=== PATIENT | male | born 1940 | race Caucasian/White ===

== ENCOUNTER 2017-02-24 03:32 | Inpatient (IN) ==
[2017-02-19 14:53] LABS: MANUAL DIFF NEEDED? NO; URINE MICRO REVIEW NEEDED? NO; URINE SOURCE CLEAN CATCH
[2017-02-19 14:57] LABS: BASO% 0.7 % (0.0-0.8); BILIRUBIN URINE NEGATIVE (NEGATIVE); BLOOD URINE NEGATIVE (NEGATIVE); COLOR YELLOW; EOS# 0.16 X1000 (0.0-0.7); EOS% 2.3 % (0.0-10.0); GLUCOSE URINE NEGATIVE (NEGATIVE); HEMATOCRIT 43.8 % (42.0-52.0); HEMOGLOBIN 15.3 g/dL (14.0-18.0); IMM GRAN# 0.03 X1000 (0.0-0.04); IMM GRAN% 0.4 % (0.0-0.5); LEUKOCYTES URINE NEGATIVE (NEGATIVE); LYMPH# 1.88 X1000 (1.2-3.4); LYMPH% 27.5 % (20.5-51.1); MCH 32.8 PG (27-31); MCHC 34.9 g/dL (33-37); MCV 93.8 FL (81-99); MONO# 0.62 X1000 (0.11-0.59); MONO% 9.1 % (1.7-9.3); MPV 9.9 FL (7.4-10.4); NITRITE URINE NEGATIVE (NEGATIVE); PH URINE 5.5; PLT 287 X1000 (130-400); PROTEIN URINE NEGATIVE (NEGATIVE); RBC 4.67 XMIL (4.7-6.1); SP GRAVITY URINE 1.018; TURBIDITY URINE CLEAR (CLEAR); UROBILINOGEN URINE NORMAL (NORMAL)
[2017-02-19 14:58] LABS: UR EPITHELIAL CELLS <10 /HPF (<10); URINE BACTERIA NEGATIVE /HPF; URINE RBC <10 /HPF (<10); URINE WBC <10 /HPF (<10)
[2017-02-19 15:03] LABS: INR 1.02; PROTIME 10.7 Seconds (9.2-11.7)
[2017-02-19 15:21] LABS: CALCIUM 9.5 mg/dL (8.8-10.2); POTASSIUM 4.9 mmol/L (3.5-5.1)
--- NOTE | 2017-02-19 16:24 | EKG Report ---
Test Performed on : 02/19/2017 2:39:04 PM Test Reason : PAT Blood Pressure : / mmHG Vent. Rate : 071 BPM Atrial Rate : 071 BPM P-R Int : 166 ms QRS Dur : 104 ms QT Int : 380 ms P-R-T Axes : 044 008 044 degrees QTc Int : 412 ms Sinus rhythm. with occasional premature ventricular complexes. Possible Anterior infarct , age undetermined Abnormal ECG When compared with ECG of 13-JUN-2009 11:29, premature ventricular complexes. are now present Borderline criteria for Anterior infarct are now present Nonspecific T wave abnormality no longer evident in Lateral leads Confirmed by Nadja SIMENTAL, Derrick Mistry ([id number]) on 02/19/2017 8:00:59 PM
[2017-02-24] MEDS ORDERED: NORCO-10 PO PRN (07:01)
[2017-02-24] MEDS ORDERED: MORPHINE IV PRN (07:01)
[2017-02-24] MEDS ORDERED: PEPCID ONE (08:17)
[2017-02-24] MEDS ORDERED: REGLAN ONE (08:17)
[2017-02-24] MEDS ORDERED: KEFZOL 2 GM/D5W 2 GM/50 ML IVPB ONE (08:18)
[2017-02-24] MEDS ORDERED: LYRICA ONE (08:18)
[2017-02-24] MEDS ORDERED: LR 1,000 ML ONE ×2 (08:18→14:21)
[2017-02-24] MEDS: CELEBREX PO SCH (08:58)
[2017-02-24] MEDS: COLACE PO SCH ×2 (08:58→21:34)
[2017-02-24] MEDS ORDERED: PROSCAR PO SCH ×2 (09:00→21:00)
[2017-02-24] MEDS ORDERED: PRINIVIL PO SCH ×2 (09:00→21:00)
[2017-02-24] MEDS ORDERED: LOPID PO SCH ×2 (09:00→21:00)
[2017-02-24] MEDS ORDERED: FLOMAX PO SCH ×2 (09:00→21:00)
[2017-02-24] MEDS ORDERED: ZETIA PO SCH ×2 (09:00→21:00)
[2017-02-24] MEDS ORDERED: TORADOL ONE (09:56)
[2017-02-24] MEDS ORDERED: VANCOMYCIN ONE (09:56)
[2017-02-24] MEDS ORDERED: MARCAINE 0.25% PF/EPI 1:200,000 ONE (09:56)
[2017-02-24] MEDS ORDERED: DURAMORPH ONE (09:56)
[2017-02-24] MEDS ORDERED: SODIUM CHLORIDE 0.9% ONE (09:56)
[2017-02-24] MEDS ORDERED: CYKLOKAPRON 1,000 MG/NS 1,000 MG/100 ML IVPB ONE ×2 (09:57)
[2017-02-24] MEDS ORDERED: CLAVE SECONDARY SET 11953 ONE (09:57)
[2017-02-24] MEDS ORDERED: NEOSPORIN G.U. IRRIGANT ONE (09:57)
[2017-02-24] MEDS ORDERED: EXPAREL 1.3% ONE (09:57)
[2017-02-24 11:06] LABS: URINE SOURCE CATH
[2017-02-24 11:23] LABS: BILIRUBIN URINE NEGATIVE (NEGATIVE); BLOOD URINE TRACE-INTACT (NEGATIVE); CLARITY CLEAR (CLEAR); COLOR YELLOW; GLUCOSE URINE NEGATIVE (NEGATIVE); LEUKOCYTES URINE NEGATIVE (NEGATIVE); NITRITE URINE NEGATIVE (NEGATIVE); PROTEIN URINE NEGATIVE (NEGATIVE); UROBILINOGEN URINE 0.2 EU/dL (0.2-1.0)
[2017-02-24 11:34] LABS: URINE EPITHELIAL CELLS <10 /HPF (<10); URINE RBC <10 /HPF (<10); URINE WBC <10 /HPF (<10)
[2017-02-24 11:56] LABS: URINE CAST NONE SEEN /LPF; URINE CRYSTAL NONE SEEN /HPF
--- NOTE | 2017-02-24 12:06 | OPERATIVE NOTE ---
PROCEDURE DATE: 02/24/2017 DATE OF SURGERY: 02/24/2017. PREOPERATIVE DIAGNOSIS: Degenerative joint disease, left knee. POSTOPERATIVE DIAGNOSIS: Degenerative joint disease, left knee. PROCEDURE: Left total knee replacement. SURGEON: Teddy Cruz MD. DRYWALL CONTRACTOR: Neftali Bond. ANESTHESIA: Spinal. COMPLICATION: None. PROCEDURE IN DETAIL: A 76-year-old presents for total knee replacement of the left knee. Risks, benefits and no guarantees were discussed, and he is willing to proceed. He was taken the operating room and satisfactory anesthesia obtained. The left knee was prepped and draped in usual sterile fashion. A time-out was taken to confirm operative site, procedure, and patient. An Esmarch was used to exsanguinate extremity and tourniquet inflated to 350 mmHg. A midline incision was made over the front of the knee followed by a quad tendon sparing arthrotomy. The patella was everted and resurfaced with freehand technique and sized to a 38 medialized dome patella. The drill paddle was used to prepare for this and the patella subluxed laterally. The knee was flexed. An intramedullary hole made in the distal femur. Distal femoral cutting block was secured, taken additional 2 mm off the distal femoral cut due to a stiff 15 degree flexion contracture. The distal femur was cut and the distal femur sized to a size 8 DePuy Attune femoral component. The 4-in-1 block was secured, and the anterior, posterior, and chamfer cuts sequentially made. The notch was created for posterior stabilized design using provided notch guide. Any osteophytes were debrided about the medial or lateral aspects of the femur and the posterior condyles. The knee was flexed and PCL retractor placed behind the tibia to protect the neurovascular bundle. The tibial cutting block was secured with extramedullary alignment and the tibial resection made. The tibia was sized to a size 9 tibial tray. Medial osteophytes were released off the tibia for soft tissue balancing. The trial reduction was performed with a size 9 tibia and a standard 5 mm rotating platform poly with good range of motion and stability. The trial implants were removed and the bony surfaces thoroughly irrigated with pulsatile lavage. Cement with a gram of vancomycin was utilized to cement a DePuy Attune size 9 rotating platform tibial tray, a size 8 left posterior stabilized femoral component, and a 38 medialized dome patella. While the cement cured, the joint capsule was injected with Exparel for pain management and a Hemovac drain placed. Any excess cement was removed with an osteotome as necessary. A size 8, 5 mm rotating platform posterior stabilized poly was secured in the tibial tray and the knee reduced. Final range of motion was 0-120 degrees with midline patellar tracking. The arthrotomy was then copiously irrigated and closed over the drain with #1 Vicryl in the arthrotomy, 2-0 Vicryl in the subcutaneous, and skin kaitlin on the skin edges. Sterile dressings completed the closure, and the tourniquet was released with good return of capillary blood flow. No intraoperative complications were noted. Instrument count and sponge count were correct at the time of closure. cc: Timoteo Cruz MD
[2017-02-24] MEDS ORDERED: OFIRMEV 1000 MG/ISOTONIC SOLN 1,000 MG/100 ML BOTTLE ONE (12:27)
[2017-02-24] MEDS ORDERED: NS 1,000 ML ONE (12:31)
[2017-02-24] MEDS ORDERED: FENTANYL ONE (12:35)
[2017-02-24] MEDS ORDERED: KETAMINE (DOSE) ONE (12:35)
[2017-02-24] MEDS ORDERED: DIPRIVAN 1% 500 MG/50 ML BOTTLE ONE (12:36)
--- NOTE | 2017-02-24 14:17 | Diag Imaging Result Document ---
PROCEDURE NAME: KNEE 1-2 VIEWS-LEFT - 02/24/2017 PLAIN RADIOGRAPH OF THE LEFT KNEE, 2 VIEWS: COMPARISON: None available. FINDINGS: There has been a recent left knee arthroplasty. The arthroplasty hardware is in the expected position. There is no evidence of periprosthetic fracture. Anterior skin kaitlin and a drainage catheter are in place. IMPRESSION: Satisfactory postoperative knee.
[2017-02-24] MEDS ORDERED: ZOFRAN ONE (14:21)
[2017-02-24] MEDS ORDERED: ROBINUL ONE (14:21)
[2017-02-24] MEDS ORDERED: DECADRON ONE (14:21)
[2017-02-24] MEDS ORDERED: XYLOCAINE-MPF 2% ONE (14:21)
[2017-02-24] MEDS ORDERED: EPHEDRINE ONE (14:21)
--- NOTE | 2017-02-24 15:47 | HISTORY AND PHYSICAL ---
CHIEF COMPLAINT: Left knee pain. HISTORY OF PRESENT ILLNESS: This is a 76-year-old male with a history of multiple joint problems. He has had 2 hips replaced and a knee scope on the left. The scope helped his knee for a short period of time and now the knee has become so severe he has difficulty with activities of daily living. He has been treated conservatively without relief. He was evaluated in the office and found to need a left total knee arthroplasty. The surgical procedure, as well as risks and benefits have been explained to patient and at this time he is ready to proceed. ALLERGIES: Not allergic to any medications. SERIOUS ILLNESSES: Hypertension, heart disease. PAST SURGERIES: A CABG, the left knee scope, both hips replaced, right shoulder and left carotid. REGULAR MEDICATIONS: 1. Doxepin 25 at night. 2. Tamsulosin 0.4 one a day. 3. Meloxicam 15, 1 a day. 4. Lisinopril 40 one a day. 5. Finasteride 5 one a day. 6. Aspirin 325, 1 a day. 7. Gemfibrozil 600 twice a day. 8. Zetia 10 once a day. REVIEW OF SYSTEMS: HEENT: No history of migraines, dizziness, loss of consciousness, CVA. Respiratory: He is a nonsmoker. No history of asthma, emphysema, shortness of breath. Heart: A CABG performed in 1999. He states he has not had any problems with his heart recently. Abdomen: No history of ulcer or digestive disorders. He does have history of enlarged prostate. PHYSICAL EXAMINATION: GENERAL: This is a 76-year-old male, alert and oriented. His primary care physician is . HEENT: Pupils equal, round, reactive. NECK: Good range of motion without adenopathy. RESPIRATORY: Respirations equal, unlabored, clear bilaterally. HEART: Regular rate and rhythm. ABDOMEN: Soft, nontender. Bowel sounds present. EXTREMITIES: Complains of pain about his left knee. He states he sometimes has difficulty walking. He walks with an obvious limp. He has minimal swelling at this time. Sometimes the pain radiates down his leg. IMPRESSION: Degenerative disease left knee. PLAN: Admit at this time for left total knee arthroplasty. Dictated by Asif Dobbs RN for Timoteo Cruz MD This chart was documented by the indicated scribe, Asif Dobbs RN and accurately reflects the services I performed and decisions made by me, Timoteo Cruz MD, as attested by the provider's signature. cc: Timoteo Cruz MD
[2017-02-24] MEDS: KEFZOL 1 GM/D5W 1 GM/50 ML IVPB IV SCH (17:15)
[2017-02-24] MEDS ORDERED: AYR NASAL SPRAY NAS PRN (20:24)
[2017-02-24] MEDS ORDERED: SINEQUAN PO SCH (21:00)
[2017-02-24] MEDS: NS 1,000 ML IV SCH (21:34)
[2017-02-24] MEDS: PERIDEX MT SCH (21:34)
[2017-02-24] MEDS ORDERED: AFRIN NASAL SPRAY NAS SCH (22:45)
[2017-02-25] MEDS: KEFZOL 1 GM/D5W 1 GM/50 ML IVPB IV SCH (02:06)
[2017-02-25] MEDS ORDERED: XARELTO PO SCH (06:00)
[2017-02-25 06:23] LABS: HEMATOCRIT 31.2 % (42.0-52.0); HEMOGLOBIN 10.4 g/dL (14.0-18.0)
[2017-02-25 06:59] LABS: AGAP 8; BUN 16 mg/dL (8-22); CALCIUM 8.1 mg/dL (8.8-10.2); CHLORIDE 102 mmol/L (98-107); COSMO 271; POTASSIUM 4.8 mmol/L (3.5-5.1); SODIUM 135 mmol/L (136-145); TCO2 25 mmol/L (25-35)
[2017-02-25] MEDS: NS 1,000 ML IV SCH ×2 (07:53→14:57)
[2017-02-25] MEDS: PERIDEX MT SCH (10:04)
[2017-02-25] MEDS: CELEBREX PO SCH (10:04)
[2017-02-25] MEDS: COLACE PO SCH (10:04)
[2017-02-25 12:12] VITALS: BP 111/51
--- NOTE | 2017-02-25 15:08 | DISCHARGE SUMMARY ---
ADMISSION DATE: 02/24/2017 DISCHARGE DATE: 02/25/2017 ADMITTING DIAGNOSIS: Degenerative joint disease left knee ADDITIONAL DIAGNOSES: 1. Hypertension. 2. Heart disease. DISCHARGE DIAGNOSES: 1. Degenerative joint disease left knee. 2. Hypertension. 3. Heart disease. ADMITTING HISTORY AND HOSPITAL COURSE: Mr. Pablo is admitted to the hospital for degenerative joint disease of the left knee and plan to perform a left total knee arthroplasty. After his surgery, he remained afebrile. His vital signs remained stable. He currently has a hematocrit of 31.2. His vital signs are stable. No signs of infection or DVT. He is currently ambulating about 1000 feet with a front wheel walker. We will plan to discharge home today with outpatient physical therapy. He will need to follow up with Dr. Cruz in about 10 days. DISCHARGE MEDICATIONS: Discharge medications are lisinopril 40 mg p.o. daily, gemfibrozil 600 mg p.o. daily. Zetia 10 mg p.o. daily, Flomax 0.4 mg p.o. daily, doxepin 50 mg p.o. daily, finasteride 5 mg p.o. daily, [place] 10 1 to 2 p.o. q.4-6 hours p.r.n. for pain. Xarelto 10 mg p.o. daily for 14 days. DISCHARGE INSTRUCTIONS: Mr. Pablo is going to be discharged home today. We will be getting an outpatient physical therapy regimen to the physical therapy place of his choice. I am discharging him on a blood thinner, and a pain medication. We plan to discharge him. The gentleman wants home health working with him so delinquency prevention social worker is working on his disposition at this time. If not, he will be outpatient physical therapy. If he has any worsening signs or symptoms, he will need to less us know. Discussed with him to call if he has any worsening signs or symptoms. He will need to follow with Dr. Cruz in about 10 days to have his kaitlin removed. If he has any questions at all, discussed with him to call us at his convenience. Dictated by DEBBIE Rosenberg for Timoteo Cruz MD cc: DEBBIE Rosenberg MD
== END 2017-02-25 16:36 | disposition home or self-care (01) ==
LOC: SURHOLD 03:32 → 4N 13:48
PROVIDERS: ADMIT Orthopaedic Surgery Adult Reconstructive Orthopaedic Surgery; ATTEND Orthopaedic Surgery Adult Reconstructive Orthopaedic Surgery